=== PATIENT | female | born 1960 ===

== ENCOUNTER 2017-08-28 11:20 | Emergency (ER) | payer OTHER ==
[~2017-08-28] VITALS: Ht 157.5 cm; Wt 62.6 kg
[~2017-08-28 11:20] MED LIST: LEVSIN/SL0.125 MG SL; PEPCID20 MG PO; SYNTEST D.S TAB1 TAB; SYNTHROID150 MCG
== END 2017-08-28 15:44 | disposition home or self-care (01) ==
LOC: ER 11:20
DX: S60.211A Contusion of right wrist, initial encounter (principal); S60.221A Contusion of right hand, initial encounter; W18.39XA Other fall on same level, initial encounter; Y93.02 Activity, running; Y92.488 Other paved roadways as the place of occurrence of the external cause; Y99.8 Other external cause status